=== PATIENT | female | born 1950 | race Asian ===

== ENCOUNTER 2020-10-22 11:49 | Outpatient (CLI) | payer MEDICARE, OTHER, SELFPAY ==
[2020-10-22 12:21] LABS: Hemoglobin A1C 10.9 % (<5.7)
[2020-10-22 12:25] LABS: Alanine Aminotransferase 20 U/L (4-35); Albumin Level 4.1 g/dL (3.5-5.1); Alkaline Phosphatase 135 U/L (38-126); Anion Gap 4 mmol/L (8-16); Aspartate Amino Transferase 25 U/L (14-36); Bilirubin,Total 0.4 mg/dL (0.2-1.3); Blood Urea Nitrogen 15 mg/dL (7-17); Calcium 9.8 mg/dL (8.4-10.2); Carbon Dioxide 34 mmol/L (22-30); Chloride 100 mmol/L (98-107); Estimated Glomerular Filt Rate > 60; Glucose 355 mg/dL (65-105); Potassium 4.6 mmol/L (3.4-5.0); Sodium 138 mmol/L (137-145)
[2020-10-22 12:32] LABS: Erythrocyte Sedimentation Rate 22 mm/hr (0-20)
[2020-10-22 12:52] LABS: Free T4 Free Thyroxine 0.73 ng/mL (0.78-2.19)
[2020-10-22 12:55] LABS: Total Triiodothyronine (T3) 1.03 NG/ML (0.97-1.69)
== END 2020-10-22 11:50 | disposition home or self-care (01) ==
PROVIDERS: PCP Family Medicine; Visit Provider Family Medicine
DX: E03.9 Hypothyroidism, unspecified (principal); I10 Essential (primary) hypertension; R63.4 Abnormal weight loss; E11.9 Type 2 diabetes mellitus without complications
CPT/HCPCS: 36415; 80053; 83036; 84439; 84443; 84480; 85652